=== PATIENT | female | born 1935 | race Caucasian/White ===

== ENCOUNTER 2020-07-31 08:48 | Inpatient (IN) | payer OTHER, MEDICARE ==
[2020-07-31] MEDS ORDERED: ONDANSETRON 4 MG/2 ML VIAL IVPUSH ONE ×2 (09:33→12:10)
[2020-07-31] MEDS ORDERED: SODIUM CHLORIDE 0.9% 500 ML INFUS.BAG IV ONE (09:40)
[2020-07-31 09:42] VITALS: BMI 22.1
[2020-07-31 09:58] LABS: VENOUS BASE EXCESS 0.9 mmol/L (-2-2); VENOUS O2 SATURATION 60.2 % (70-80); VENOUS PCO2 56.9 mmHg (38-52); VENOUS PH 7.317 (7.310-7.410)
[2020-07-31 10:00] LABS: BASO % 0.6 % (0-2.0); EOS % 0.8 % (0-4.5); HEMATOCRIT 43.8 % (32.4-45.2); HEMOGLOBIN 14.5 GM/dL (10.7-15.3); LYMPH % 13.9 % (8-40); MCHC 33.2 g/dl (32.0-36.0); MEAN CELL VOLUME 87.2 fl (80-96); MEAN PLT VOLUME 8.4 fl (7.5-11.1); MONO % 4.2 % (3.8-10.2); NEUT % 80.5 % (42.8-82.8); PLATELET COUNT 184 K/MM3 (134-434); RBC 5.02 M/mm3 (3.60-5.2); RDW 14.7 % (11.6-15.6); WHITE BLOOD COUNT 8.1 K/mm3 (4.0-10.0)
[2020-07-31] MEDS ORDERED: PIPERACILLIN/TAZOB 4.5 GM 4.5 GM in DEXTROSE 5%-WATER 100 ML IVPB ONE (10:02)
[2020-07-31] MEDS ORDERED: VANCOMYCIN 1 GM in D5W (PRE-DOCKED) 1,000 MG/250 ML IVPB ONE (10:02)
[2020-07-31 10:04] LABS: INR 0.97 (0.83-1.09); POTASSIUM 3.2 mmol/L (3.5-5.1); PROTHROMBIN TIME (PATIENT) 11.7 SEC (9.7-13.0)
[2020-07-31] MEDS ORDERED: ONDANSETRON 4 MG/2 ML VIAL ONE ×3 (10:04→21:04)
[2020-07-31 10:06] LABS: ALBUMIN 3.7 g/dl (3.4-5.0); BLOOD UREA NITROGEN 13.7 mg/dL (7-18); CALCIUM 8.3 mg/dL (8.5-10.1); MAGNESIUM 2.4 mg/dL (1.8-2.4)
[2020-07-31 10:07] LABS: ACTIVATED PTT 28.6 SECONDS (25.2-36.5)
[2020-07-31 10:09] LABS: CREATININE 0.6 mg/dL (0.55-1.3)
[2020-07-31 10:11] LABS: BILIRUBIN,TOTAL 1.1 mg/dL (0.2-1); TOT PROT 7.5 g/dl (6.4-8.2)
[2020-07-31 10:14] LABS: PH,URINE 8.5 (5.0-8.0); URINE APPEARANCE CLOUDY; URINE BILIRUBIN NEGATIVE (NEGATIVE); URINE COLOR YELLOW; URINE GLUCOSE (UA) NEGATIVE (NEGATIVE); URINE KETONE NEGATIVE (NEGATIVE); URINE LEUK ESTERASE NEGATIVE (NEGATIVE); URINE NITRITE NEGATIVE (NEGATIVE); URINE PROTEIN NEGATIVE (NEGATIVE); URINE UROBILINOGEN 0.2 mg/dL (0.2-1.0)
[2020-07-31] MEDS ORDERED: PIPERACILLIN/TAZOB 4.5 GM 4.5 GM/100 ML BAG IVPB ONE (10:18)
[2020-07-31] MEDS ORDERED: VANCOMYCIN 1 GRAM (PRE-DOCKED) 1,000 MG/250 ML BAG IVPB ONE (10:18)
[2020-07-31] MEDS ORDERED: POTASSIUM CHLORIDE ORAL LIQUID 20 MEQ/15 ML PO ONE ×2 (10:22→10:26)
[2020-07-31] MEDS ORDERED: POTASSIUM CHLORIDE ORAL LIQUID 20 MEQ/15 ML ONE (10:32)
[2020-07-31] MEDS ORDERED: PIPERACILLIN/TAZOB 3.375 GM 3.375 GM in DEXTROSE 5%-WATER - 50 ML IVPB SCH (18:00)
[2020-07-31] MEDS ORDERED: PIPERACILLIN/TAZOB 3.375 GM 3.375 GM/50 ML BAG IVPB ONE (18:09)
[2020-07-31] MEDS: PIPERACILLIN/TAZOB 3.375 GM 3.375 GM in DEXTROSE 5%-WATER - 50 ML IVPB SCH (18:19)
[2020-07-31] MEDS ORDERED: ONDANSETRON 4 MG/2 ML VIAL IVPUSH PRN (18:33)
[2020-07-31] MEDS ORDERED: ALBUTEROL SO4 0.083% IH SOL 2.5 MG/3 ML VIAL.NEB. NEB PRN (18:33)
[2020-07-31] MEDS ORDERED: ACETAMINOPHEN 1000 MG/100 ML VIAL (NON FORMULARY) IVPB PRN (18:33)
[2020-08-01] MEDS ORDERED: PIPERACILLIN/TAZOBACTAM 3.375 GM VIAL IVPB ONE ×2 (01:36→09:32)
[2020-08-01] MEDS ORDERED: DEXTROSE 5%-WATER - 50 ML IVPB ONE ×2 (01:36→09:32)
[2020-08-01] MEDS: PIPERACILLIN/TAZOB 3.375 GM 3.375 GM in DEXTROSE 5%-WATER - 50 ML IVPB SCH ×2 (01:46→09:37)
[2020-08-01 09:05] LABS: BILIRUBIN,TOTAL 0.6 mg/dL (0.2-1); BLOOD UREA NITROGEN 16.6 mg/dL (7-18); CALCIUM 8.2 mg/dL (8.5-10.1); CREATININE 0.8 mg/dL (0.55-1.3); MAGNESIUM 2.4 mg/dL (1.8-2.4); PHOSPHOROUS 5.3 mg/dL (2.5-4.9); POTASSIUM 3.2 mmol/L (3.5-5.1); TOT PROT 6.3 g/dl (6.4-8.2)
[2020-08-01] MEDS: ENOXAPARIN NA (PORCINE) 40 MG/0.4 ML DISP.SYRIN SQ SCH (09:38)
[2020-08-01] MEDS: amLODIPine BESYLATE 5 MG TABLET (FP) PO SCH (09:38)
[2020-08-01] MEDS: KCL 10 MEQ IVPB 10 MEQ/100 ML INFUS.BAG IVPB SCH ×2 (10:10→11:31)
[2020-08-01] MEDS: DULoxetine HCL 30 MG CAPSULE.DR PO SCH (15:56)
[2020-08-01] MEDS ORDERED: POTASSIUM CHLORIDE TABS 20 MEQ TABLET.ER (FP) PO SCH (18:00)
[2020-08-01] MEDS ORDERED: PIPERACILLIN/TAZOB 3.375 GM 3.375 GM in DEXTROSE 5%-WATER - 50 ML IVPB SCH (18:00)
[2020-08-01] MEDS ORDERED: KCL 10 MEQ IVPB 10 MEQ/100 ML INFUS.BAG IVPB SCH (18:15)
[2020-08-01] MEDS ORDERED: POTASSIUM CHLORIDE TABS 20 MEQ TABLET.ER (FP) PO ONE (18:23)
[2020-08-01] MEDS: GABAPENTIN 400 MG CAPSULE PO SCH (21:29)
[2020-08-02 08:21] LABS: HEMATOCRIT 39.8 % (32.4-45.2); HEMOGLOBIN 13.1 GM/dL (10.7-15.3); MCH 28.7 pg (25.7-33.7); MCHC 32.9 g/dl (32.0-36.0); MEAN CELL VOLUME 87.1 fl (80-96); MEAN PLT VOLUME 8.4 fl (7.5-11.1); PLATELET COUNT 170 K/MM3 (134-434); RBC 4.56 M/mm3 (3.60-5.2); RDW 14.6 % (11.6-15.6); WHITE BLOOD COUNT 5.7 K/mm3 (4.0-10.0)
[2020-08-02 09:20] LABS: POTASSIUM 3.5 mmol/L (3.5-5.1)
[2020-08-02 09:25] LABS: CALCIUM 8.7 mg/dL (8.5-10.1)
[2020-08-02 09:26] LABS: MAGNESIUM 2.5 mg/dL (1.8-2.4)
[2020-08-02 09:29] LABS: CREATININE 0.6 mg/dL (0.55-1.3); PHOSPHOROUS 3.4 mg/dL (2.5-4.9)
[2020-08-02 09:34] LABS: BLOOD UREA NITROGEN 21.4 mg/dL (7-18)
[2020-08-02] MEDS: DULoxetine HCL 30 MG CAPSULE.DR PO SCH (09:39)
[2020-08-02] MEDS: amLODIPine BESYLATE 5 MG TABLET (FP) PO SCH (09:39)
[2020-08-02] MEDS: GABAPENTIN 400 MG CAPSULE PO SCH (09:39)
[2020-08-02] MEDS: ENOXAPARIN NA (PORCINE) 40 MG/0.4 ML DISP.SYRIN SQ SCH (09:39)
[2020-08-02 14:46] VITALS: BP 123/80; PULSE 73; TEMP 98.8
== END 2020-08-02 18:14 | disposition home health service (06) | DRG 206 ==
LOC: JER 08:48 → JERBED 09:52 → J6S 08-01 01:33
PROVIDERS: ADMIT Internal Medicine; ATTEND Student in an Organized Health Care Education/Training Program
DX: J98.11 Atelectasis (principal); J96.11 Chronic respiratory failure with hypoxia; J90 Pleural effusion, not elsewhere classified; Q61.02 Congenital multiple renal cysts; K57.90 Diverticulosis of intestine, part unspecified, without perforation or abscess without bleeding; I10 Essential (primary) hypertension; J44.9 Chronic obstructive pulmonary disease, unspecified; R10.9 Unspecified abdominal pain; K21.9 Gastro-esophageal reflux disease without esophagitis; F32.9 Major depressive disorder, single episode, unspecified; H35.30 Unspecified macular degeneration; E87.6 Hypokalemia; R11.2 Nausea with vomiting, unspecified; K83.8 Other specified diseases of biliary tract; I71.6 Thoracoabdominal aortic aneurysm, without rupture; K80.20 Calculus of gallbladder without cholecystitis without obstruction; G62.9 Polyneuropathy, unspecified
CPT/HCPCS: 36415; 71045-TC-FY; 74177-TC; 74181-TC; 80048; 80053; 81003; 82272; 82803; 83605; 83690; 83735; 84100; 84484; 85025; 85027; 85610; 85730; 87040; 87086; 87186; 87804; 93005; 93010; 97116-GP; 97162-GP; 99285-25; C9803; Q9967; U0003